=== PATIENT | male | born 1950 | race Caucasian/White ===

== ENCOUNTER 2018-03-23 16:28 | Emergency (ER) | payer MEDICARE ==
[~2018-03-23] VITALS: Ht 167.6 cm; Wt 84.0 kg
[2018-03-23 17:06] LABS: MEAN CORPUSCULAR HEMOGLOBIN 31.6 pg (27.5-34.5); MEAN CORPUSCULAR HGB CONC 32.9 g/dL (33.2-36.2); MEAN CORPUSCULAR VOLUME 96.1 fL (81-97); MEAN PLATELET VOLUME 8.5 fL (7.4-10.4); PLATELET COUNT 190 x10^3/uL (130-400); RED BLOOD COUNT 3.88 x10^6/uL (4.38-5.82); RED CELL DISTRIBUTION WIDTH 19.4 % (9.4-14.8)
[2018-03-23 17:07] LABS: INTERNATIONAL NORMALIZED RATIO 1.16 (0.93-1.1); PROTHROMBIN TIME 12.2 Seconds (9.6-11.5)
[2018-03-23 17:12] LABS: ALANINE AMINOTRANSFERASE 67 U/L (12-78); ALBUMIN 2.8 g/dL (3.4-5.0); ANION GAP 15 mmol/L (5-15); CALCIUM 8.6 mg/dL (8.5-10.1); CHLORIDE 102 mmol/L (98-107); CREATININE 1.32 mg/dL (0.7-1.3)
[2018-03-23 17:14] LABS: ALKALINE PHOSPHATASE 139 U/L (45-117); BILIRUBIN,TOTAL 5.8 mg/dL (0.2-1.0); TOTAL PROTEIN 6.8 g/dL (6.4-8.2)
--- NOTE | 2018-03-23 17:28 | NUR ---
PT REPORTS HAVING STAGE 4 PROSTATE CA. PT C/O MASS IN UPPER ABD THAT IS PAINFUL. PT IS ALERT, ORIENTED, WITH NAD. PT IS CONNECTED TO THE MONITOR. CALL LIGHT WITHIN REACH.
[2018-03-23] MEDS ORDERED: ZOLP-413 PO (17:33)
[2018-03-23] MEDS ORDERED: HYDR-3237 PO (17:33)
[2018-03-23] MEDS ORDERED: OMEP-110 PO (17:33)
--- NOTE | 2018-03-23 17:54 | NUR ---
PROVIDER AT BEDSIDE.
[2018-03-23 18:04] LABS: MD YES
[2018-03-23 18:06] LABS: BASOS#(MANUAL) 0.13 x10^3/uL (0-0.1); BASOS% (MANUAL) 1 % (0-1); LYMPH#(MANUAL) 2.32 x10^3/uL (1-3.4); LYMPHS% (MANUAL) 18 % (22-44); MONOS#(MANUAL) 0.52 x10^3/uL (0.3-2.7); MONOS% (MANUAL) 4 % (2-9); SEG#(MANUAL) 9.93 x10^3/uL (1.8-6.8); SEGS% (MANUAL) 77 % (42-75)
[2018-03-23 18:07] LABS: <PLATELET ESTIMATE> ADEQUATE; <PLT MORPHOLOGY> NORMAL PLT MORPH; ANISOCYTOSIS 1+; POLYCHROMASIA 1+
[2018-03-23] MEDS ORDERED: OMNIPAQUE 350 MG/ML, 100ML BOTTLE ONE (18:25)
--- NOTE | 2018-03-23 18:38 | NUR ---
PT IS BACK FROM CT. PT IS RESTING IN BED, TALKING WITH STAFF. PT IS CONNECTED TO THE MONITOR. CALL LIGHT WITHIN REACH.
--- NOTE | 2018-03-23 18:51 | NUR ---
REPORT GIVEN TO KEYONA ROOT.
--- NOTE | 2018-03-23 18:54 | NUR ---
PT REPORT FROM ROSA ISELA ROOT. THIS RN TO ASSUME CARE OF PT. PT RESTING COMFORTABLY ON GURSILVERIO. ADWOAN. AWAITING CT RESULTS.
[2018-03-23 19:49] VITALS: BP 146/90
--- NOTE | 2018-03-23 19:50 | NUR ---
NO IMMEDIATE NEEDS FROM FAMILY OR PT. VSS. CALL LIGHT WITHIN REACH. AWAITING MD RECHECK.
--- NOTE | 2018-03-23 20:02 | NUR ---
AT BEDSIDE FOR RECHECK.
--- NOTE | 2018-03-23 20:27 | NUR ---
PT OFFERED ADMISSION BY MD AND EDUCATED, PT REFUSED AND STATES "I WANT TO GO TO [place] W/ MY SISTER."
[2018-03-23] MEDS ORDERED: OXYcodone/APAP 5/325MG TABLET PO ONE (21:00)
[2018-03-23] MEDS ORDERED: OXYcodone/APAP 5/325MG TABLET ONE (21:03)
== END 2018-03-23 21:12 | disposition home or self-care (01) ==
LOC: ED 18:53
DX: K43.9 Ventral hernia without obstruction or gangrene (principal); C78.7 Secondary malignant neoplasm of liver and intrahepatic bile duct; C61 Malignant neoplasm of prostate; Z51.11 Encounter for antineoplastic chemotherapy
CPT/HCPCS: 36415; 74177; 80053; 83690; 85025; 85610; 99284; Q9967